=== PATIENT | female | born 1950 | race Caucasian/White ===

== ENCOUNTER 2019-10-06 13:36 | Inpatient (IN) ==
[2019-10-06] MEDS ORDERED: SODIUM CHLORIDE 0.9% 500 ML IV STA (13:58)
[2019-10-06] MEDS ORDERED: ACETAMINOPHEN 325 MG TABLET PO PRN (17:23)
[2019-10-06] MEDS ORDERED: ONDANSETRON 4 MG/2 ML VIAL IV PRN (17:23)
[2019-10-06] MEDS ORDERED: tiZANidine 4 MG TABLET PO PRN (17:26)
[2019-10-06] MEDS: SODIUM CHLORIDE 0.9% 1,000 ML IV SCH (21:00)
[2019-10-06] MEDS: ENOXAPARIN 40 MG/0.4 ML SYRINGE SUBCUT SCH (21:33)
[2019-10-06] MEDS: POTASSIUM CHLORIDE 20 MEQ TABLET PO SCH (21:33)
[2019-10-06] MEDS: MORPHINE 4 MG/1 ML VIAL IV PRN (21:35)
[2019-10-07] MEDS: MORPHINE 4 MG/1 ML VIAL IV PRN ×3 (04:04→14:42)
[2019-10-07 04:40] LABS: Basophils % 0.4 % (0.0-0.8); Eosinophils # 0.3 10*3/uL (0.0-0.87); Hematocrit 28.5 VOL% (35.7-47.0); Immature Granulocytes % 0.5 %; Immature Granulocytes Absolute 0.05 #; Lymphocytes # 1.6 10*3/uL (1.4-4.0); Lymphocytes % 16.7 % (21.3-54.2); Mean Corpuscular HGB Conc 31.6 GM/DL (32-36); Mean Corpuscular Volume 94.7 FL (87-102); Mean Platelet Volume 10.8 FL (9.6-12.0); Neutrophils % 71.4 % (38.7-73.9); Platelet Count 239 T/CUMM (130-400); Red Blood Count 3.01 MC/CUMM (3.8-5.5); Red Cell Distribution Width 15.9 % (9.3-17.3); White Blood Count 9.5 T/CUMM (4-12)
[2019-10-07] MEDS: SODIUM CHLORIDE 0.9% 1,000 ML IV SCH ×4 (04:58→23:36)
[2019-10-07 05:03] LABS: Albumin 2.5 G/DL (3.4-5.0); Bilirubin,Total 1.1 MG/DL (0.2-1.0); Calcium 8.1 MG/DL (8.5-10.1); Thyroid Stimulating Hormone 1.38 uIU/ml (0.358-3.74); Total Protein 5.8 G/DL (6.4-8.3)
[2019-10-07] MEDS: FUROSEMIDE 80 MG TABLET PO SCH (09:09)
[2019-10-07] MEDS: CITALOPRAM 20 MG TABLET PO SCH (09:09)
[2019-10-07] MEDS: MONTELUKAST 10 MG TABLET PO SCH (09:09)
[2019-10-07] MEDS: ATORVASTATIN 20 MG TABLET PO SCH (09:09)
[2019-10-07] MEDS: POTASSIUM CHLORIDE 20 MEQ TABLET PO SCH ×2 (09:09→21:19)
[2019-10-07] MEDS: IRON (CARBONYL)/VIT C/B12/FA TABLET PO SCH (09:10)
[2019-10-07] MEDS: PANTOPRAZOLE 40 MG TABLET PO SCH (09:10)
[2019-10-07] MEDS ORDERED: POTASSIUM CHLORIDE 20 MEQ TABLET PO ONE (12:09)
[2019-10-07 15:10] LABS: Apearance,Urine Slightly Hazy (Clear); Bilirubin,Urine Negative (Negative); Blood, Urine Negative (Negative); Glucose,Urine (UA) Negative (Negative); Ketones,Urine 20 mg/dL (Negative); Nitrite,Urine Negative (Negative); Protein,Urine Negative; RBC,Urine 3 /HPF (0-4); Squamous Epithelial Cell,Urine Occasional /HPF (0-10); Urine Color Yellow (Yellow); Urine Specific Gravity 1.011 (1.001-1.035); Urine Urobilinogen < 2.0 EU/DL (0.2-1.0); WBC,Urine 4 /HPF (0-6)
[2019-10-07] MEDS: oxyCODONE IR 5 MG TABLET PO PRN (18:47)
[2019-10-07] MEDS: ENOXAPARIN 40 MG/0.4 ML SYRINGE SUBCUT SCH (21:19)
[2019-10-08] MEDS: SODIUM CHLORIDE 0.9% 1,000 ML IV SCH ×3 (07:03→09:55)
[2019-10-08 07:21] LABS: Basophils % 0.3 % (0.0-0.8); Eosinophils # 0.2 10*3/uL (0.0-0.87); Eosinophils % 2.1 % (0.00-10.9); Hematocrit 28.4 VOL% (35.7-47.0); Hemoglobin 8.7 GM/DL (12.0-16.0); Immature Granulocytes % 0.3 %; Immature Granulocytes Absolute 0.03 #; Lymphocytes # 1.7 10*3/uL (1.4-4.0); Lymphocytes % 19.9 % (21.3-54.2); Mean Corpuscular HGB Conc 30.6 GM/DL (32-36); Mean Corpuscular Volume 96.3 FL (87-102); Mean Platelet Volume 10.6 FL (9.6-12.0); Monocytes % 8.6 % (1.7-12.7); Neutrophils % 68.8 % (38.7-73.9); Platelet Count 238 T/CUMM (130-400); Red Blood Count 2.95 MC/CUMM (3.8-5.5); Red Cell Distribution Width 15.9 % (9.3-17.3); White Blood Count 8.7 T/CUMM (4-12)
[2019-10-08 07:52] LABS: Calcium 8.3 MG/DL (8.5-10.1); Osmolality,Calculated 279.1 MOS/KG (273-304)
[2019-10-08 08:06] LABS: Risk Ratio 2.7; VLDL CHOLESTEROL 13.8 MG/DL
[2019-10-08] MEDS: POTASSIUM CHLORIDE 20 MEQ TABLET PO SCH ×2 (08:20→22:08)
[2019-10-08] MEDS: CITALOPRAM 20 MG TABLET PO SCH (08:20)
[2019-10-08] MEDS: IRON (CARBONYL)/VIT C/B12/FA TABLET PO SCH (08:20)
[2019-10-08] MEDS: ATORVASTATIN 20 MG TABLET PO SCH (08:21)
[2019-10-08] MEDS: oxyCODONE IR 5 MG TABLET PO PRN ×3 (08:21→22:14)
[2019-10-08] MEDS: MONTELUKAST 10 MG TABLET PO SCH (08:21)
[2019-10-08] MEDS: FUROSEMIDE 80 MG TABLET PO SCH (08:21)
[2019-10-08] MEDS: PANTOPRAZOLE 40 MG TABLET PO SCH (08:21)
[2019-10-08 12:19] LABS: % Iron Saturation 7.1 % (18-50)
[2019-10-08] MEDS: ENOXAPARIN 40 MG/0.4 ML SYRINGE SUBCUT SCH (22:08)
[2019-10-09] MEDS: IRON (CARBONYL)/VIT C/B12/FA TABLET PO SCH (09:42)
[2019-10-09] MEDS: oxyCODONE IR 5 MG TABLET PO PRN ×3 (09:42→22:06)
[2019-10-09] MEDS: ATORVASTATIN 20 MG TABLET PO SCH (09:42)
[2019-10-09] MEDS: CITALOPRAM 20 MG TABLET PO SCH (09:42)
[2019-10-09] MEDS: MONTELUKAST 10 MG TABLET PO SCH (09:42)
[2019-10-09] MEDS: POTASSIUM CHLORIDE 20 MEQ TABLET PO SCH ×2 (09:42→20:12)
[2019-10-09] MEDS: PANTOPRAZOLE 40 MG TABLET PO SCH (09:43)
[2019-10-09] MEDS: SODIUM CHLORIDE 0.9% 1,000 ML IV SCH ×2 (09:46→18:47)
[2019-10-09] MEDS: FUROSEMIDE 80 MG TABLET PO SCH (09:46)
[2019-10-09] MEDS: ENOXAPARIN 40 MG/0.4 ML SYRINGE SUBCUT SCH (20:12)
[2019-10-10] MEDS: SODIUM CHLORIDE 0.9% 1,000 ML IV SCH ×3 (05:42→16:43)
[2019-10-10] MEDS: oxyCODONE IR 5 MG TABLET PO PRN ×3 (07:50→21:56)
[2019-10-10] MEDS: IRON (CARBONYL)/VIT C/B12/FA TABLET PO SCH (09:26)
[2019-10-10] MEDS: POTASSIUM CHLORIDE 20 MEQ TABLET PO SCH ×2 (09:26→21:56)
[2019-10-10] MEDS: CITALOPRAM 20 MG TABLET PO SCH (09:26)
[2019-10-10] MEDS: PANTOPRAZOLE 40 MG TABLET PO SCH (09:26)
[2019-10-10] MEDS: MONTELUKAST 10 MG TABLET PO SCH (09:26)
[2019-10-10] MEDS: FUROSEMIDE 80 MG TABLET PO SCH (09:26)
[2019-10-10] MEDS: ATORVASTATIN 20 MG TABLET PO SCH (09:29)
[2019-10-10] MEDS: ENOXAPARIN 40 MG/0.4 ML SYRINGE SUBCUT SCH (21:57)
[2019-10-11] MEDS: SODIUM CHLORIDE 0.9% 1,000 ML IV SCH ×2 (01:30→15:05)
[2019-10-11] MEDS: oxyCODONE IR 5 MG TABLET PO PRN ×2 (06:20→17:36)
[2019-10-11] MEDS: FUROSEMIDE 80 MG TABLET PO SCH (09:57)
[2019-10-11] MEDS: CITALOPRAM 20 MG TABLET PO SCH (09:57)
[2019-10-11] MEDS: MONTELUKAST 10 MG TABLET PO SCH (09:57)
[2019-10-11] MEDS: PANTOPRAZOLE 40 MG TABLET PO SCH (09:57)
[2019-10-11] MEDS: ATORVASTATIN 20 MG TABLET PO SCH (09:57)
[2019-10-11] MEDS: POTASSIUM CHLORIDE 20 MEQ TABLET PO SCH ×2 (09:57→21:34)
[2019-10-11] MEDS: IRON (CARBONYL)/VIT C/B12/FA TABLET PO SCH (09:58)
[2019-10-11] MEDS: MORPHINE 4 MG/1 ML VIAL IV PRN ×2 (10:18→21:56)
[2019-10-11] MEDS: ENOXAPARIN 40 MG/0.4 ML SYRINGE SUBCUT SCH (21:34)
[2019-10-12 05:18] LABS: Basophils % 0.4 % (0.0-0.8); Eosinophils # 0.1 10*3/uL (0.0-0.87); Eosinophils % 1.4 % (0.00-10.9); Hematocrit 31.6 VOL% (35.7-47.0); Hemoglobin 9.5 GM/DL (12.0-16.0); Immature Granulocytes % 0.7 %; Immature Granulocytes Absolute 0.06 #; Lymphocytes # 1.8 10*3/uL (1.4-4.0); Lymphocytes % 20.9 % (21.3-54.2); Mean Corpuscular HGB Conc 30.1 GM/DL (32-36); Mean Platelet Volume 9.9 FL (9.6-12.0); Monocytes % 10.3 % (1.7-12.7); Neutrophils % 66.3 % (38.7-73.9); Platelet Count 289 T/CUMM (130-400); Red Blood Count 3.29 MC/CUMM (3.8-5.5); Red Cell Distribution Width 15.3 % (9.3-17.3); White Blood Count 8.4 T/CUMM (4-12)
[2019-10-12 05:56] LABS: Calcium 8.7 MG/DL (8.5-10.1); Osmolality,Calculated 278.7 MOS/KG (273-304)
[2019-10-12] MEDS ORDERED: TISSUE ADHESIVE 1 EACH APPLICATOR TOP ONE (10:58)
[2019-10-12] MEDS ORDERED: ROPIVACAINE 0.5% 30 ML VIAL ONE (10:58)
[2019-10-12] MEDS ORDERED: LACTATED RINGERS 1,000 ML IV SCH (12:00)
[2019-10-12] MEDS ORDERED: LIDOCAINE 2% 5 ML VIAL ONE (12:44)
[2019-10-12] MEDS ORDERED: GLYCOPYRROLATE 0.4 MG/2 ML VIAL ONE (12:44)
[2019-10-12] MEDS ORDERED: propofoL 200 MG/20 ML VIAL IV ONE (12:44)
[2019-10-12] MEDS ORDERED: ONDANSETRON 4 MG/2 ML VIAL IV PRN (12:45)
[2019-10-12] MEDS ORDERED: diphenhydrAMINE 50 MG/1 ML VIAL IV PRN (12:45)
[2019-10-12] MEDS ORDERED: MEPERIDINE 25 MG/1 ML VIAL IV PRN (12:45)
[2019-10-12] MEDS ORDERED: PROMETHAZINE INJ 25 MG in SODIUM CHLORIDE 0.9% 50 ML IV PRN (12:45)
[2019-10-12] MEDS ORDERED: MEPERIDINE 25 MG/1 ML VIAL ONE (12:51)
[2019-10-12] MEDS ORDERED: ONDANSETRON 4 MG/2 ML VIAL ONE (12:51)
[2019-10-12] MEDS: oxyCODONE IR 5 MG TABLET PO PRN ×2 (14:19→21:15)
[2019-10-12] MEDS: FUROSEMIDE 80 MG TABLET PO SCH (14:20)
[2019-10-12] MEDS: CITALOPRAM 20 MG TABLET PO SCH (14:25)
[2019-10-12] MEDS: MONTELUKAST 10 MG TABLET PO SCH (14:25)
[2019-10-12] MEDS: POTASSIUM CHLORIDE 20 MEQ TABLET PO SCH ×2 (14:25→20:57)
[2019-10-12] MEDS: guaiFENesin/DM ER 600-30 MG TABLET PO PRN (14:25)
[2019-10-12] MEDS: IRON (CARBONYL)/VIT C/B12/FA TABLET PO SCH (14:25)
[2019-10-12] MEDS: ATORVASTATIN 20 MG TABLET PO SCH (14:26)
[2019-10-12] MEDS: PANTOPRAZOLE 40 MG TABLET PO SCH (14:26)
[2019-10-12] MEDS: CALCIUM (CARBONATE) 600 MG TABLET PO SCH ×2 (15:05→20:57)
[2019-10-12] MEDS: calcitrioL 0.25 MCG CAPSULE PO SCH (15:05)
[2019-10-12] MEDS: MORPHINE 4 MG/1 ML VIAL IV PRN (17:50)
[2019-10-12] MEDS: SODIUM CHLORIDE 0.9% 1,000 ML IV SCH (19:28)
[2019-10-12] MEDS: ENOXAPARIN 40 MG/0.4 ML SYRINGE SUBCUT SCH (20:57)
[2019-10-13] MEDS: SODIUM CHLORIDE 0.9% 1,000 ML IV SCH ×4 (00:41→23:07)
[2019-10-13] MEDS: oxyCODONE IR 5 MG TABLET PO PRN ×2 (05:38→21:07)
[2019-10-13] MEDS: POTASSIUM CHLORIDE 20 MEQ TABLET PO SCH ×2 (09:02→21:07)
[2019-10-13] MEDS: MONTELUKAST 10 MG TABLET PO SCH (09:02)
[2019-10-13] MEDS: calcitrioL 0.25 MCG CAPSULE PO SCH (09:02)
[2019-10-13] MEDS: CALCIUM (CARBONATE) 600 MG TABLET PO SCH ×2 (09:02→21:07)
[2019-10-13] MEDS: ATORVASTATIN 20 MG TABLET PO SCH (09:02)
[2019-10-13] MEDS: guaiFENesin/DM ER 600-30 MG TABLET PO PRN (09:02)
[2019-10-13] MEDS: IRON (CARBONYL)/VIT C/B12/FA TABLET PO SCH (09:02)
[2019-10-13] MEDS: CITALOPRAM 20 MG TABLET PO SCH (09:03)
[2019-10-13] MEDS: PANTOPRAZOLE 40 MG TABLET PO SCH (09:04)
[2019-10-13] MEDS: FUROSEMIDE 80 MG TABLET PO SCH (09:07)
[2019-10-13] MEDS: MORPHINE 4 MG/1 ML VIAL IV PRN (09:42)
[2019-10-13] MEDS: DEXAMETHASONE 4 MG TABLET PO SCH ×3 (14:45→21:07)
[2019-10-13] MEDS: tiZANidine 4 MG TABLET PO SCH ×2 (17:01→21:07)
[2019-10-13] MEDS: ENOXAPARIN 40 MG/0.4 ML SYRINGE SUBCUT SCH (21:07)
[2019-10-14] MEDS: SODIUM CHLORIDE 0.9% 1,000 ML IV SCH ×2 (01:00→13:36)
[2019-10-14] MEDS: oxyCODONE IR 5 MG TABLET PO PRN ×2 (03:36→09:18)
[2019-10-14] MEDS: PANTOPRAZOLE 40 MG TABLET PO SCH (08:28)
[2019-10-14] MEDS: POTASSIUM CHLORIDE 20 MEQ TABLET PO SCH (08:28)
[2019-10-14] MEDS: calcitrioL 0.25 MCG CAPSULE PO SCH (08:28)
[2019-10-14] MEDS: MONTELUKAST 10 MG TABLET PO SCH (08:28)
[2019-10-14] MEDS: DEXAMETHASONE 4 MG TABLET PO SCH ×2 (08:29→13:23)
[2019-10-14] MEDS: IRON (CARBONYL)/VIT C/B12/FA TABLET PO SCH (08:29)
[2019-10-14] MEDS: FUROSEMIDE 80 MG TABLET PO SCH (08:29)
[2019-10-14] MEDS: CITALOPRAM 20 MG TABLET PO SCH (08:29)
[2019-10-14] MEDS: tiZANidine 4 MG TABLET PO SCH (08:29)
[2019-10-14] MEDS: ATORVASTATIN 20 MG TABLET PO SCH (08:29)
[2019-10-14 08:32] VITALS: BP 160/72
[2019-10-14] MEDS: CALCIUM (CARBONATE) 600 MG TABLET PO SCH (09:18)
[2019-10-14] MEDS ORDERED: fentaNYL 25 MCG/HR PATCH TRANSDERM SCH (12:15)
[2019-10-14] MEDS ORDERED: BISACODYL 10 MG SUPP RECTAL ONE (12:43)
== END 2019-10-14 14:38 | DRG 517 ==
LOC: EDUNIT# → N.ED 13:36 → N.EDINP 13:36 → N.2W 17:58 → SUPCPDRO 10-08 15:08 → N.3E 10-09 16:04
PROVIDERS: ADMIT Internal Medicine; ATTEND Internal Medicine

== ENCOUNTER 2019-12-04 13:13 | Inpatient (IN) ==
[2019-12-04] MEDS ORDERED: ALBUTEROL/IPRATROPIUM 3 ML NEB RESP TX STA (14:11)
[2019-12-04] MEDS ORDERED: methylPREDNISolone SOD SUC 125 MG/2 ML VIAL IV STA (14:11)
[2019-12-04] MEDS ORDERED: ONDANSETRON 4 MG/2 ML VIAL IV STA (14:11)
[2019-12-04] MEDS ORDERED: FUROSEMIDE 40 MG/4 ML VIAL IV STA (14:11)
[2019-12-04 14:26] LABS: Basophils % 0.1 % (0.0-0.8); Eosinophils % 0.1 % (0.00-10.9); Hematocrit 24.9 VOL% (35.7-47.0); Hemoglobin 7.3 GM/DL (12.0-16.0); Immature Granulocytes % 2.1 %; Immature Granulocytes Absolute 0.36 #; Lymphocytes # 1.6 10*3/uL (1.4-4.0); Lymphocytes % 9.8 % (21.3-54.2); Mean Corpuscular HGB Conc 29.3 GM/DL (32-36); Mean Corpuscular Volume 85.6 FL (87-102); Mean Platelet Volume 10.5 FL (9.6-12.0); Monocytes % 4.5 % (1.7-12.7); NRBC # 0.03 10*3/uL; Neutrophils % 83.4 % (38.7-73.9); Platelet Count 357 T/CUMM (130-400); Red Blood Count 2.91 MC/CUMM (3.8-5.5); Red Cell Distribution Width 17.2 % (9.3-17.3); White Blood Count 16.8 T/CUMM (4-12)
[2019-12-04 14:32] LABS: Albumin 2.4 G/DL (3.4-5.0); Bilirubin,Total 0.6 MG/DL (0.2-1.0); Calcium 8.4 MG/DL (8.5-10.1); Osmolality,Calculated 270.4 MOS/KG (273-304); Total Protein 5.5 G/DL (6.4-8.3)
[2019-12-04 14:37] LABS: INR 1.1; PT Patient Result 11.4 SECS (9.6-12.2)
[2019-12-04 14:56] LABS: Basophils % 0.1 % (0.0-0.8); Hematocrit 26.2 VOL% (35.7-47.0); Hemoglobin 7.6 GM/DL (12.0-16.0); Immature Granulocytes % 1.5 %; Immature Granulocytes Absolute 0.27 #; Lymphocytes % 11.2 % (21.3-54.2); Mean Platelet Volume 9.9 FL (9.6-12.0); Monocytes % 5.2 % (1.7-12.7); NRBC # 0.03 10*3/uL; Platelet Count 399 T/CUMM (130-400); Red Blood Count 3.01 MC/CUMM (3.8-5.5); Red Cell Distribution Width 17.3 % (9.3-17.3); White Blood Count 17.9 T/CUMM (4-12)
[2019-12-04 15:04] LABS: INR 1.1; PT Patient Result 11.4 SECS (9.6-12.2)
[2019-12-04 15:11] LABS: Albumin 2.6 G/DL (3.4-5.0); Bilirubin,Total 1.1 MG/DL (0.2-1.0); Calcium 8.6 MG/DL (8.5-10.1); Total Protein 5.7 G/DL (6.4-8.3)
[2019-12-04 15:12] LABS: Osmolality,Calculated 271.2 MOS/KG (273-304)
[2019-12-04 15:40] LABS: Apearance,Urine CLEAR (Clear); Bilirubin,Urine Negative (Negative); Blood, Urine Negative (Negative); Glucose,Urine (UA) Negative (Negative); Ketones,Urine Negative (Negative); Nitrite,Urine Negative (Negative); Protein,Urine Negative; Squamous Epithelial Cell,Urine Occasional /HPF (0-10); Urine Color Colorless (Yellow); Urine Specific Gravity 1.013 (1.001-1.035); Urine Urobilinogen < 2.0 EU/DL (0.2-1.0)
[2019-12-04] MEDS ORDERED: GLUCAGON 1 MG VIAL IM PRN (16:06)
[2019-12-04] MEDS ORDERED: DEXTROSE 10% 250 ML BAG IV PRN (16:06)
[2019-12-04] MEDS ORDERED: ACETAMINOPHEN 325 MG TABLET PO PRN (16:12)
[2019-12-04] MEDS ORDERED: ONDANSETRON 4 MG/2 ML VIAL IV PRN (16:12)
[2019-12-04] MEDS ORDERED: tiZANidine 4 MG TABLET PO PRN (16:20)
[2019-12-04] MEDS ORDERED: AZITHROMYCIN INJ 500 MG in SODIUM CHLORIDE 0.9% 250 ML IV SCH (16:30)
[2019-12-04] MEDS ORDERED: SODIUM CHLORIDE 0.9% 1,000 ML IV PRN (17:13)
[2019-12-04 17:26] LABS: % Iron Saturation 3.3 % (18-50); Ferritin 39.7 ng/ml (8-252)
[2019-12-04 17:34] LABS: Folate 11.6 NG/ML (5.4-24.0)
[2019-12-04] MEDS: cefTRIAXone 1,000 MG in SYRINGE 1 EACH IV SCH (17:37)
[2019-12-04] MEDS: INSULIN LISPRO 100 UNIT/ML SUBCUT SCH ×2 (17:51→21:13)
[2019-12-04] MEDS: HEPARIN DRIP 25,000 UNITS/500 ML PREMIX IV SCH (18:11)
[2019-12-04] MEDS: ALBUTEROL/IPRATROPIUM 3 ML NEB RESP TX SCH (19:50)
[2019-12-04] MEDS ORDERED: AZITHROMYCIN 250 MG TABLET PO ONE (20:00)
[2019-12-04 20:23] LABS: Hematocrit 27.5 VOL% (35.7-47.0); Hemoglobin 7.5 GM/DL (12.0-16.0)
[2019-12-04] MEDS: POTASSIUM CHLORIDE 20 MEQ TABLET PO SCH (21:12)
[2019-12-04] MEDS: IRON (CARBONYL)/VIT C/B12/FA TABLET PO SCH (21:12)
[2019-12-04] MEDS: CALCIUM (CARBONATE) 600 MG TABLET PO SCH (21:13)
[2019-12-04] MEDS: DEXAMETHASONE 4 MG TABLET PO SCH (21:13)
[2019-12-05] MEDS: ALBUTEROL/IPRATROPIUM 3 ML NEB RESP TX SCH ×4 (01:35→20:45)
[2019-12-05 03:14] LABS: Hematocrit 24.9 VOL% (35.7-47.0); Hemoglobin 7.3 GM/DL (12.0-16.0)
[2019-12-05 03:44] LABS: Calcium 8.3 MG/DL (8.5-10.1); Osmolality,Calculated 279.5 MOS/KG (273-304); Thyroid Stimulating Hormone 0.142 uIU/ml (0.358-3.74)
[2019-12-05] MEDS: HEPARIN DRIP 25,000 UNITS/500 ML PREMIX IV SCH ×2 (05:23→19:24)
[2019-12-05 05:45] LABS: Basophils % 0.1 % (0.0-0.8); Eosinophils % 0.1 % (0.00-10.9); Hematocrit 25.5 VOL% (35.7-47.0); Hemoglobin 7.3 GM/DL (12.0-16.0); Immature Granulocytes Absolute 0.35 #; Lymphocytes % 11.1 % (21.3-54.2); Mean Corpuscular HGB Conc 28.6 GM/DL (32-36); Mean Platelet Volume 10.4 FL (9.6-12.0); Monocytes % 3.1 % (1.7-12.7); NRBC # 0.04 10*3/uL; Neutrophils % 83.6 % (38.7-73.9); Platelet Count 407 T/CUMM (130-400); Red Blood Count 2.93 MC/CUMM (3.8-5.5); White Blood Count 17.8 T/CUMM (4-12)
[2019-12-05 05:47] LABS: Anisocytosis 1+; Platelet Estimate Adequate
[2019-12-05] MEDS ORDERED: POTASSIUM CHLORIDE 20 MEQ TABLET PO ONE (07:59)
[2019-12-05] MEDS: IRON (CARBONYL)/VIT C/B12/FA TABLET PO SCH ×2 (09:21→21:24)
[2019-12-05] MEDS: CALCIUM (CARBONATE) 600 MG TABLET PO SCH ×2 (09:21→21:24)
[2019-12-05] MEDS: CITALOPRAM 20 MG TABLET PO SCH (09:21)
[2019-12-05] MEDS: POTASSIUM CHLORIDE 20 MEQ TABLET PO SCH ×2 (09:21→21:25)
[2019-12-05] MEDS: DEXAMETHASONE 4 MG TABLET PO SCH ×2 (09:22→21:24)
[2019-12-05] MEDS: ATORVASTATIN 20 MG TABLET PO SCH (09:22)
[2019-12-05] MEDS: AZITHROMYCIN 250 MG TABLET PO SCH (09:22)
[2019-12-05] MEDS: FUROSEMIDE 80 MG TABLET PO SCH (09:22)
[2019-12-05] MEDS: MONTELUKAST 10 MG TABLET PO SCH (09:22)
[2019-12-05] MEDS: BUDESONIDE/FORMOTEROL 160-4.5 INHALER 6 GM INH SCH ×3 (09:23→21:25)
[2019-12-05] MEDS: calcitrioL 0.25 MCG CAPSULE PO SCH (09:28)
[2019-12-05] MEDS: INSULIN LISPRO 100 UNIT/ML SUBCUT SCH ×4 (09:28→21:24)
[2019-12-05] MEDS: PANTOPRAZOLE 40 MG VIAL IV SCH ×2 (14:38→21:25)
[2019-12-05] MEDS: cefTRIAXone 1,000 MG in SYRINGE 1 EACH IV SCH (19:36)
[2019-12-05] MEDS: INSULIN GLARGINE 100 UNIT/ML SUBCUT SCH (21:25)
[2019-12-06] MEDS: ALBUTEROL/IPRATROPIUM 3 ML NEB RESP TX SCH ×4 (00:08→19:52)
[2019-12-06 05:19] LABS: Basophils % 0.1 % (0.0-0.8); Immature Granulocytes % 1.7 %; Immature Granulocytes Absolute 0.28 #; Lymphocytes # 0.8 10*3/uL (1.4-4.0); Lymphocytes % 4.9 % (21.3-54.2); Mean Corpuscular HGB Conc 27.8 GM/DL (32-36); Mean Corpuscular Volume 88.1 FL (87-102); Mean Platelet Volume 9.8 FL (9.6-12.0); NRBC # 0.06 10*3/uL; Neutrophils % 88.3 % (38.7-73.9); Platelet Count 354 T/CUMM (130-400); Red Blood Count 2.61 MC/CUMM (3.8-5.5); White Blood Count 16.5 T/CUMM (4-12)
[2019-12-06 05:28] LABS: Hemoglobin 6.4 GM/DL (12.0-16.0)
[2019-12-06] MEDS ORDERED: SODIUM CHLORIDE 0.9% 1,000 ML IV PRN (05:33)
[2019-12-06 05:34] LABS: Calcium 8.8 MG/DL (8.5-10.1); Osmolality,Calculated 281.1 MOS/KG (273-304)
[2019-12-06 06:29] LABS: Lymphocytes 4 % (20-55); Segmented Neutrophils 93 % (50-85); Total Cells Counted 100
[2019-12-06 06:30] LABS: Anisocytosis 1+; Hypochromasia 1+; Microcytosis 1+; Ovalocytes 1+; Platelet Estimate Adequate; Polychromasia 1+
[2019-12-06] MEDS: MONTELUKAST 10 MG TABLET PO SCH (08:31)
[2019-12-06] MEDS: INSULIN LISPRO 100 UNIT/ML SUBCUT SCH ×4 (08:31→20:26)
[2019-12-06] MEDS: FUROSEMIDE 80 MG TABLET PO SCH (08:32)
[2019-12-06] MEDS: DEXAMETHASONE 4 MG TABLET PO SCH ×2 (08:32→20:29)
[2019-12-06] MEDS: CALCIUM (CARBONATE) 600 MG TABLET PO SCH ×2 (08:32→20:28)
[2019-12-06] MEDS: POTASSIUM CHLORIDE 20 MEQ TABLET PO SCH ×2 (08:32→20:27)
[2019-12-06] MEDS: ATORVASTATIN 20 MG TABLET PO SCH (08:32)
[2019-12-06] MEDS: IRON (CARBONYL)/VIT C/B12/FA TABLET PO SCH ×2 (08:32→20:28)
[2019-12-06] MEDS: CITALOPRAM 20 MG TABLET PO SCH (08:32)
[2019-12-06] MEDS: calcitrioL 0.25 MCG CAPSULE PO SCH (08:32)
[2019-12-06] MEDS: AZITHROMYCIN 250 MG TABLET PO SCH (08:32)
[2019-12-06] MEDS: PANTOPRAZOLE 40 MG VIAL IV SCH ×2 (08:33→20:31)
[2019-12-06] MEDS: HEPARIN DRIP 25,000 UNITS/500 ML PREMIX IV SCH ×2 (09:39→23:14)
[2019-12-06] MEDS: BUDESONIDE/FORMOTEROL 160-4.5 INHALER 6 GM INH SCH ×2 (10:04→20:29)
[2019-12-06] MEDS: fentaNYL 12 MCG/HR PATCH TRANSDERM SCH (12:48)
[2019-12-06 16:01] LABS: Hemoglobin 9.1 GM/DL (12.0-16.0)
[2019-12-06] MEDS: cefTRIAXone 1,000 MG in SYRINGE 1 EACH IV SCH (17:35)
[2019-12-06] MEDS: INSULIN GLARGINE 100 UNIT/ML SUBCUT SCH (20:27)
[2019-12-07] MEDS: ALBUTEROL/IPRATROPIUM 3 ML NEB RESP TX SCH ×4 (00:59→19:53)
[2019-12-07] MEDS: POTASSIUM CHLORIDE 20 MEQ TABLET PO SCH ×2 (08:45→21:14)
[2019-12-07] MEDS: CALCIUM (CARBONATE) 600 MG TABLET PO SCH ×2 (08:45→21:15)
[2019-12-07] MEDS: MONTELUKAST 10 MG TABLET PO SCH (08:45)
[2019-12-07] MEDS: PANTOPRAZOLE 40 MG VIAL IV SCH ×2 (08:46→21:15)
[2019-12-07] MEDS: IRON (CARBONYL)/VIT C/B12/FA TABLET PO SCH ×2 (08:46→21:14)
[2019-12-07] MEDS: FUROSEMIDE 80 MG TABLET PO SCH (08:46)
[2019-12-07] MEDS: ATORVASTATIN 20 MG TABLET PO SCH (08:46)
[2019-12-07] MEDS: CITALOPRAM 20 MG TABLET PO SCH (08:46)
[2019-12-07] MEDS: calcitrioL 0.25 MCG CAPSULE PO SCH (08:46)
[2019-12-07] MEDS: AZITHROMYCIN 250 MG TABLET PO SCH (08:46)
[2019-12-07] MEDS: DEXAMETHASONE 4 MG TABLET PO SCH ×2 (08:46→21:14)
[2019-12-07] MEDS: INSULIN LISPRO 100 UNIT/ML SUBCUT SCH ×4 (08:47→21:15)
[2019-12-07] MEDS: BUDESONIDE/FORMOTEROL 160-4.5 INHALER 6 GM INH SCH ×2 (08:47→21:14)
[2019-12-07] MEDS: HEPARIN DRIP 25,000 UNITS/500 ML PREMIX IV SCH ×3 (10:26→18:26)
[2019-12-07 13:04] LABS: Hematocrit 32.9 VOL% (35.7-47.0); Hemoglobin 10.1 GM/DL (12.0-16.0)
[2019-12-07] MEDS: cefTRIAXone 1,000 MG in SYRINGE 1 EACH IV SCH (17:46)
[2019-12-07] MEDS ORDERED: MAGNESIUM CITRATE 300 ML BOTTLE PO ONE (18:00)
[2019-12-07] MEDS: INSULIN GLARGINE 100 UNIT/ML SUBCUT SCH (21:15)
[2019-12-08] MEDS: ALBUTEROL/IPRATROPIUM 3 ML NEB RESP TX SCH ×4 (00:35→20:16)
[2019-12-08] MEDS: HEPARIN DRIP 25,000 UNITS/500 ML PREMIX IV SCH ×3 (02:33→17:38)
[2019-12-08 06:54] LABS: Basophils % 0.1 % (0.0-0.8); Hematocrit 27.9 VOL% (35.7-47.0); Hemoglobin 8.7 GM/DL (12.0-16.0); Immature Granulocytes % 2.3 %; Lymphocytes # 0.9 10*3/uL (1.4-4.0); Lymphocytes % 5.1 % (21.3-54.2); Mean Corpuscular HGB Conc 31.2 GM/DL (32-36); Mean Corpuscular Volume 85.1 FL (87-102); Mean Platelet Volume 9.7 FL (9.6-12.0); Monocytes % 6.3 % (1.7-12.7); NRBC # 0.02 10*3/uL; Neutrophils % 86.2 % (38.7-73.9); Platelet Count 313 T/CUMM (130-400); Red Blood Count 3.28 MC/CUMM (3.8-5.5); Red Cell Distribution Width 16.5 % (9.3-17.3); White Blood Count 17.4 T/CUMM (4-12)
[2019-12-08 07:25] LABS: Calcium 8.3 MG/DL (8.5-10.1); Osmolality,Calculated 281.2 MOS/KG (273-304)
[2019-12-08] MEDS: ATORVASTATIN 20 MG TABLET PO SCH (09:21)
[2019-12-08] MEDS: MONTELUKAST 10 MG TABLET PO SCH (09:21)
[2019-12-08] MEDS: AZITHROMYCIN 250 MG TABLET PO SCH (09:21)
[2019-12-08] MEDS: calcitrioL 0.25 MCG CAPSULE PO SCH (09:21)
[2019-12-08] MEDS: CALCIUM (CARBONATE) 600 MG TABLET PO SCH ×2 (09:22→20:56)
[2019-12-08] MEDS: FUROSEMIDE 80 MG TABLET PO SCH (09:22)
[2019-12-08] MEDS: CITALOPRAM 20 MG TABLET PO SCH (09:22)
[2019-12-08] MEDS: fentaNYL 12 MCG/HR PATCH TRANSDERM SCH (09:24)
[2019-12-08] MEDS: INSULIN LISPRO 100 UNIT/ML SUBCUT SCH ×4 (09:25→20:56)
[2019-12-08] MEDS: PANTOPRAZOLE 40 MG VIAL IV SCH ×2 (09:25→20:57)
[2019-12-08] MEDS: BUDESONIDE/FORMOTEROL 160-4.5 INHALER 6 GM INH SCH ×2 (09:26→20:57)
[2019-12-08] MEDS: POTASSIUM CHLORIDE 20 MEQ/15 ML UDCUP PO SCH ×2 (09:34→21:03)
[2019-12-08] MEDS: DEXAMETHASONE 4 MG TABLET PO SCH ×2 (09:34→20:56)
[2019-12-08] MEDS: cefTRIAXone 1,000 MG in SYRINGE 1 EACH IV SCH (17:30)
[2019-12-08] MEDS: INSULIN GLARGINE 100 UNIT/ML SUBCUT SCH (20:57)
[2019-12-09] MEDS: ALBUTEROL/IPRATROPIUM 3 ML NEB RESP TX SCH ×4 (01:02→20:32)
[2019-12-09 05:32] LABS: Basophils % 0.1 % (0.0-0.8); Hematocrit 29.1 VOL% (35.7-47.0); Hemoglobin 8.7 GM/DL (12.0-16.0); Immature Granulocytes % 2.7 %; Immature Granulocytes Absolute 0.51 #; Lymphocytes # 0.9 10*3/uL (1.4-4.0); Lymphocytes % 4.7 % (21.3-54.2); Mean Corpuscular HGB Conc 29.9 GM/DL (32-36); Mean Corpuscular Volume 85.1 FL (87-102); Mean Platelet Volume 10.2 FL (9.6-12.0); Monocytes % 4.6 % (1.7-12.7); Neutrophils % 87.9 % (38.7-73.9); Platelet Count 315 T/CUMM (130-400); Red Blood Count 3.42 MC/CUMM (3.8-5.5); Red Cell Distribution Width 16.6 % (9.3-17.3); White Blood Count 19.1 T/CUMM (4-12)
[2019-12-09 05:51] LABS: Calcium 8.8 MG/DL (8.5-10.1); Osmolality,Calculated 275.4 MOS/KG (273-304)
[2019-12-09 05:54] LABS: Anisocytosis 1+; Hypochromasia 1+; Lymphocytes 6 % (20-55); Ovalocytes Few; Segmented Neutrophils 91 % (50-85); Tear Drop Cells Few; Total Cells Counted 100
[2019-12-09 05:55] LABS: Platelet Estimate Normal
[2019-12-09] MEDS: INSULIN LISPRO 100 UNIT/ML SUBCUT SCH ×4 (09:12→20:57)
[2019-12-09] MEDS: FUROSEMIDE 80 MG TABLET PO SCH (09:12)
[2019-12-09] MEDS: MONTELUKAST 10 MG TABLET PO SCH (09:12)
[2019-12-09] MEDS: CALCIUM (CARBONATE) 600 MG TABLET PO SCH ×2 (09:12→20:54)
[2019-12-09] MEDS: CITALOPRAM 20 MG TABLET PO SCH (09:12)
[2019-12-09] MEDS: ATORVASTATIN 20 MG TABLET PO SCH (09:12)
[2019-12-09] MEDS: AZITHROMYCIN 250 MG TABLET PO SCH (09:12)
[2019-12-09] MEDS: POTASSIUM CHLORIDE 20 MEQ/15 ML UDCUP PO SCH ×2 (09:12→20:54)
[2019-12-09] MEDS: PANTOPRAZOLE 40 MG VIAL IV SCH ×2 (09:13→20:54)
[2019-12-09] MEDS: BUDESONIDE/FORMOTEROL 160-4.5 INHALER 6 GM INH SCH ×2 (09:15→12:30)
[2019-12-09] MEDS: DEXAMETHASONE 4 MG TABLET PO SCH ×2 (09:19→20:54)
[2019-12-09] MEDS: calcitrioL 0.25 MCG CAPSULE PO SCH (09:19)
[2019-12-09] MEDS: HEPARIN DRIP 25,000 UNITS/500 ML PREMIX IV SCH ×2 (09:23→18:04)
[2019-12-09] MEDS: fentaNYL 12 MCG/HR PATCH TRANSDERM SCH (09:23)
[2019-12-09] MEDS: cefTRIAXone 1,000 MG in SYRINGE 1 EACH IV SCH (17:57)
[2019-12-09] MEDS: METOCLOPRAMIDE 10 MG/2 ML VIAL IV SCH (17:57)
[2019-12-09] MEDS: INSULIN GLARGINE 100 UNIT/ML SUBCUT SCH (20:57)
[2019-12-10] MEDS: METOCLOPRAMIDE 10 MG/2 ML VIAL IV SCH ×2 (01:39→06:09)
[2019-12-10] MEDS: ALBUTEROL/IPRATROPIUM 3 ML NEB RESP TX SCH ×4 (02:04→20:12)
[2019-12-10 05:31] LABS: Basophils % 0.1 % (0.0-0.8); Hemoglobin 8.5 GM/DL (12.0-16.0); Immature Granulocytes % 3.3 %; Lymphocytes # 0.9 10*3/uL (1.4-4.0); Lymphocytes % 4.8 % (21.3-54.2); Mean Corpuscular HGB Conc 29.3 GM/DL (32-36); Mean Corpuscular Volume 86.6 FL (87-102); Mean Platelet Volume 9.8 FL (9.6-12.0); Monocytes % 4.3 % (1.7-12.7); Neutrophils % 87.5 % (38.7-73.9); Platelet Count 298 T/CUMM (130-400); Red Blood Count 3.35 MC/CUMM (3.8-5.5); Red Cell Distribution Width 16.4 % (9.3-17.3); White Blood Count 18.1 T/CUMM (4-12)
[2019-12-10 05:57] LABS: Calcium 8.6 MG/DL (8.5-10.1); Osmolality,Calculated 274.4 MOS/KG (273-304)
[2019-12-10 06:15] LABS: Anisocytosis 1+; Hypochromasia 1+; Lymphocytes 3 % (20-55); Microcytosis 1+; Segmented Neutrophils 93 % (50-85); Total Cells Counted 100
[2019-12-10 06:16] LABS: Hypersegmented Neutrophil SLIGHT
[2019-12-10] MEDS: INSULIN LISPRO 100 UNIT/ML SUBCUT SCH ×4 (08:23→22:15)
[2019-12-10] MEDS: POTASSIUM CHLORIDE 20 MEQ/15 ML UDCUP PO SCH ×2 (08:24→22:16)
[2019-12-10] MEDS: calcitrioL 0.25 MCG CAPSULE PO SCH (08:24)
[2019-12-10] MEDS: CITALOPRAM 20 MG TABLET PO SCH (08:25)
[2019-12-10] MEDS: CALCIUM (CARBONATE) 600 MG TABLET PO SCH ×2 (08:25→22:17)
[2019-12-10] MEDS: MONTELUKAST 10 MG TABLET PO SCH (08:25)
[2019-12-10] MEDS: ATORVASTATIN 20 MG TABLET PO SCH (08:25)
[2019-12-10] MEDS: FUROSEMIDE 80 MG TABLET PO SCH (08:25)
[2019-12-10] MEDS: AZITHROMYCIN 250 MG TABLET PO SCH (08:25)
[2019-12-10] MEDS: PANTOPRAZOLE 40 MG VIAL IV SCH ×2 (08:27→22:15)
[2019-12-10] MEDS: DEXAMETHASONE 4 MG TABLET PO SCH ×2 (08:32→22:17)
[2019-12-10] MEDS: IRON (CARBONYL)/VIT C/B12/FA TABLET PO SCH ×2 (08:33→22:17)
[2019-12-10] MEDS: HEPARIN DRIP 25,000 UNITS/500 ML PREMIX IV SCH (08:35)
[2019-12-10] MEDS: APIXABAN 5 MG TABLET PO SCH ×2 (09:36→22:17)
[2019-12-10] MEDS: BUDESONIDE/FORMOTEROL 160-4.5 INHALER 6 GM INH SCH ×2 (09:36→22:30)
[2019-12-10] MEDS: METOCLOPRAMIDE 10 MG/10 ML UDCUP PO SCH ×4 (12:13→22:16)
[2019-12-10] MEDS: cefTRIAXone 1,000 MG in SYRINGE 1 EACH IV SCH (17:16)
[2019-12-10] MEDS: INSULIN GLARGINE 100 UNIT/ML SUBCUT SCH (22:16)
[2019-12-11] MEDS: ALBUTEROL/IPRATROPIUM 3 ML NEB RESP TX SCH ×2 (00:39→09:09)
[2019-12-11 05:28] LABS: Calcium 8.6 MG/DL (8.5-10.1); Osmolality,Calculated 274.4 MOS/KG (273-304)
[2019-12-11] MEDS: METOCLOPRAMIDE 10 MG/10 ML UDCUP PO SCH ×2 (08:00→11:47)
[2019-12-11] MEDS: INSULIN LISPRO 100 UNIT/ML SUBCUT SCH ×2 (08:01→11:47)
[2019-12-11 08:10] LABS: Basophils % 0.1 % (0.0-0.8); Hematocrit 31.2 VOL% (35.7-47.0); Hemoglobin 9.1 GM/DL (12.0-16.0); Immature Granulocytes % 3.7 %; Lymphocytes % 4.6 % (21.3-54.2); Mean Corpuscular HGB Conc 29.2 GM/DL (32-36); Mean Corpuscular Volume 87.6 FL (87-102); Monocytes % 4.1 % (1.7-12.7); Neutrophils % 87.5 % (38.7-73.9); Platelet Count 316 T/CUMM (130-400); Red Blood Count 3.56 MC/CUMM (3.8-5.5); Red Cell Distribution Width 16.5 % (9.3-17.3); White Blood Count 21.8 T/CUMM (4-12)
[2019-12-11 08:51] LABS: Band Neutrophils 1 % (0-10); Lymphocytes 7 % (20-55); Platelet Estimate Normal; Segmented Neutrophils 88 % (50-85); Total Cells Counted 100
[2019-12-11 08:52] LABS: Anisocytosis 1+
[2019-12-11] MEDS: ATORVASTATIN 20 MG TABLET PO SCH (09:18)
[2019-12-11] MEDS: FUROSEMIDE 80 MG TABLET PO SCH (09:18)
[2019-12-11] MEDS: AZITHROMYCIN 250 MG TABLET PO SCH (09:18)
[2019-12-11] MEDS: POTASSIUM CHLORIDE 20 MEQ/15 ML UDCUP PO SCH (09:18)
[2019-12-11] MEDS: IRON (CARBONYL)/VIT C/B12/FA TABLET PO SCH (09:18)
[2019-12-11] MEDS: MONTELUKAST 10 MG TABLET PO SCH (09:18)
[2019-12-11] MEDS: CITALOPRAM 20 MG TABLET PO SCH (09:18)
[2019-12-11] MEDS: PANTOPRAZOLE 40 MG VIAL IV SCH (09:18)
[2019-12-11] MEDS: CALCIUM (CARBONATE) 600 MG TABLET PO SCH (09:18)
[2019-12-11] MEDS: DEXAMETHASONE 4 MG TABLET PO SCH (09:18)
[2019-12-11] MEDS: APIXABAN 5 MG TABLET PO SCH (09:18)
[2019-12-11] MEDS: BUDESONIDE/FORMOTEROL 160-4.5 INHALER 6 GM INH SCH (09:19)
[2019-12-11] MEDS: calcitrioL 0.25 MCG CAPSULE PO SCH (09:21)
[2019-12-11] MEDS ORDERED: APIXABAN 5 MG TABLET PO ONE (11:08)
[2019-12-11 12:16] VITALS: BP 112/71
[2019-12-11] MEDS ORDERED: APIXABAN 5 MG TABLET PO SCH ×2 (21:00)
== END 2019-12-11 13:52 | disposition home health service (06) | DRG 175 ==
LOC: EDUNIT# → N.ED 13:13 → SUATTDRO 16:05 → N.EDINP 16:05 → N.TELEN 17:10
PROVIDERS: ADMIT Internal Medicine; ATTEND Internal Medicine Geriatric Medicine

== ENCOUNTER 2019-12-24 16:30 | Inpatient (IN) ==
[2019-12-24] MEDS ORDERED: ORPHENADRINE 60 MG/2 ML VIAL IV STA (17:03)
[2019-12-24 17:59] LABS: Basophils % 0.1 % (0.0-0.8); Hematocrit 24.4 VOL% (35.7-47.0); Hemoglobin 7.2 GM/DL (12.0-16.0); Immature Granulocytes % 2.1 %; Immature Granulocytes Absolute 0.35 #; Lymphocytes # 0.8 10*3/uL (1.4-4.0); Lymphocytes % 4.5 % (21.3-54.2); Mean Corpuscular HGB Conc 29.5 GM/DL (32-36); Mean Corpuscular Volume 87.8 FL (87-102); Mean Platelet Volume 9.5 FL (9.6-12.0); Monocytes % 3.5 % (1.7-12.7); NRBC # 0.06 10*3/uL; Neutrophils % 89.8 % (38.7-73.9); Platelet Count 222 T/CUMM (130-400); Red Blood Count 2.78 MC/CUMM (3.8-5.5); Red Cell Distribution Width 18.9 % (9.3-17.3); White Blood Count 16.9 T/CUMM (4-12)
[2019-12-24 18:17] LABS: Alanine Aminotransferase 102 U/L (13-56); Albumin 2.1 G/DL (3.4-5.0); Alkaline Phosphatase 75 U/L (45-117); Aspartate Amino Transferase 19 U/L (0-37); Blood Urea Nitrogen 28 MG/DL (7-18); Calcium 7.9 MG/DL (8.5-10.1); Estimated Glom Filtration Rate 109 ML/MIN; Ferritin 25.4 ng/ml (8-252); Glucose 461 MG/DL (74-106); Osmolality,Calculated 289.5 MOS/KG (273-304); Total Protein 5.1 G/DL (6.4-8.3); Troponin I 0.026 NG/ML (0.00-0.045)
[2019-12-24 18:19] LABS: Apearance,Urine CLEAR (Clear); Bilirubin,Urine Negative (Negative); Blood, Urine Negative (Negative); Glucose,Urine (UA) >=500 mg/dL (Negative); Hyaline Casts,Urine 4 /LPF (0-3); Ketones,Urine Negative (Negative); Mucus,Urine Occasional /LPF (Occasional); Nitrite,Urine Negative (Negative); Protein,Urine Negative; RBC,Urine 7 /HPF (0-4); Squamous Epithelial Cell,Urine Occasional /HPF (0-10); Transitional Epi Cells,Urine Occasional /HPF (<1); Urine Color Yellow (Yellow); Urine Specific Gravity 1.018 (1.001-1.035); Urine Urobilinogen < 2.0 EU/DL (0.2-1.0); WBC,Urine 20 /HPF (0-6)
[2019-12-24 18:24] LABS: Lymphocytes 6 % (20-55); Platelet Estimate Normal; Segmented Neutrophils 94 % (50-85); Total Cells Counted 100
[2019-12-24 18:25] LABS: Hypochromasia Slight
[2019-12-24 18:29] LABS: PT Patient Result 10.8 SECS (9.8-11.9)
[2019-12-24 18:30] LABS: Partial Thromboplastin Time > 211.8 SECS (23.9-33.8)
[2019-12-24] MEDS ORDERED: DEXTROSE 10% 250 ML BAG IV PRN (18:54)
[2019-12-24] MEDS ORDERED: DEXTROSE 50% 25 GM/50 ML VIAL IV PRN (18:54)
[2019-12-24] MEDS ORDERED: GLUCAGON 1 MG VIAL IM PRN ×2 (18:54)
[2019-12-24] MEDS ORDERED: tiZANidine 4 MG TABLET PO PRN (18:56)
[2019-12-24] MEDS ORDERED: BUDESONIDE/FORMOTEROL 160-4.5 INHALER 6 GM INH PRN (18:56)
[2019-12-24] MEDS ORDERED: PANTOPRAZOLE 40 MG TABLET PO SCH (19:00)
[2019-12-24] MEDS ORDERED: SODIUM CHLORIDE 0.9% 1,000 ML IV PRN (19:00)
[2019-12-24] MEDS ORDERED: cefTRIAXone 1,000 MG in SYRINGE 1 EACH IV SCH (21:00)
[2019-12-24] MEDS: PANTOPRAZOLE 40 MG VIAL IV SCH (22:30)
[2019-12-24] MEDS: APIXABAN 5 MG TABLET PO SCH (22:30)
[2019-12-24] MEDS: CALCIUM (CARBONATE) 600 MG TABLET PO SCH (22:30)
[2019-12-24] MEDS: INSULIN LISPRO 100 UNIT/ML SUBCUT SCH (22:56)
[2019-12-25] MEDS ORDERED: SODIUM CHLORIDE 0.9% 1,000 ML IV PRN ×2 (00:54→00:56)
[2019-12-25 06:43] LABS: Basophils % 0.1 % (0.0-0.8); Hematocrit 27.4 VOL% (35.7-47.0); Hemoglobin 8.1 GM/DL (12.0-16.0); Immature Granulocytes % 1.7 %; Immature Granulocytes Absolute 0.27 #; Lymphocytes # 1.4 10*3/uL (1.4-4.0); Lymphocytes % 9.1 % (21.3-54.2); Mean Corpuscular HGB Conc 29.6 GM/DL (32-36); Mean Platelet Volume 9.6 FL (9.6-12.0); Monocytes % 6.1 % (1.7-12.7); NRBC # 0.03 10*3/uL; Platelet Count 221 T/CUMM (130-400); Red Blood Count 3.08 MC/CUMM (3.8-5.5); Red Cell Distribution Width 18.4 % (9.3-17.3); White Blood Count 15.6 T/CUMM (4-12)
[2019-12-25 07:03] LABS: Calcium 8.1 MG/DL (8.5-10.1); Osmolality,Calculated 278.1 MOS/KG (273-304)
[2019-12-25] MEDS: CITALOPRAM 20 MG TABLET PO SCH (09:21)
[2019-12-25] MEDS: MONTELUKAST 10 MG TABLET PO SCH (09:21)
[2019-12-25] MEDS: PANTOPRAZOLE 40 MG VIAL IV SCH ×2 (09:21→20:29)
[2019-12-25] MEDS: APIXABAN 5 MG TABLET PO SCH ×2 (09:21→20:28)
[2019-12-25] MEDS: ATORVASTATIN 20 MG TABLET PO SCH (09:21)
[2019-12-25] MEDS: CALCIUM (CARBONATE) 600 MG TABLET PO SCH ×2 (09:21→20:28)
[2019-12-25] MEDS: PIPERACILLIN/TAZOBACTAM 3,375 MG in SODIUM CHLORIDE 0.9% 100 ML IV SCH ×3 (09:22→23:38)
[2019-12-25] MEDS: INSULIN LISPRO 100 UNIT/ML SUBCUT SCH ×4 (09:32→20:29)
[2019-12-25] MEDS: METOCLOPRAMIDE 10 MG/10 ML UDCUP PO SCH ×2 (17:04→20:29)
[2019-12-26 05:43] LABS: Basophils % 0.2 % (0.0-0.8); Eosinophils % 0.2 % (0.00-10.9); Hematocrit 28.2 VOL% (35.7-47.0); Hemoglobin 8.3 GM/DL (12.0-16.0); Immature Granulocytes % 1.6 %; Immature Granulocytes Absolute 0.21 #; Lymphocytes # 1.4 10*3/uL (1.4-4.0); Lymphocytes % 10.7 % (21.3-54.2); Mean Corpuscular HGB Conc 29.4 GM/DL (32-36); Mean Platelet Volume 9.6 FL (9.6-12.0); Monocytes % 7.4 % (1.7-12.7); NRBC # 0.03 10*3/uL; Neutrophils % 79.9 % (38.7-73.9); Platelet Count 198 T/CUMM (130-400); Red Blood Count 3.17 MC/CUMM (3.8-5.5); White Blood Count 13.1 T/CUMM (4-12)
[2019-12-26 06:14] LABS: Osmolality,Calculated 276.1 MOS/KG (273-304)
[2019-12-26] MEDS: INSULIN LISPRO 100 UNIT/ML SUBCUT SCH ×5 (08:41→21:33)
[2019-12-26] MEDS: MONTELUKAST 10 MG TABLET PO SCH (09:04)
[2019-12-26] MEDS: CALCIUM (CARBONATE) 600 MG TABLET PO SCH ×2 (09:04→21:34)
[2019-12-26] MEDS: APIXABAN 5 MG TABLET PO SCH ×2 (09:04→21:34)
[2019-12-26] MEDS: ATORVASTATIN 20 MG TABLET PO SCH (09:04)
[2019-12-26] MEDS: METOCLOPRAMIDE 10 MG/10 ML UDCUP PO SCH ×4 (09:04→21:35)
[2019-12-26] MEDS: PANTOPRAZOLE 40 MG VIAL IV SCH (09:04)
[2019-12-26] MEDS: CITALOPRAM 20 MG TABLET PO SCH (09:04)
[2019-12-26] MEDS: PIPERACILLIN/TAZOBACTAM 3,375 MG in SODIUM CHLORIDE 0.9% 100 ML IV SCH (09:14)
[2019-12-26] MEDS: AMOXICILLIN/CLAV 875 MG TABLET PO SCH ×2 (12:55→21:34)
[2019-12-26] MEDS: PANTOPRAZOLE 40 MG TABLET PO SCH (21:34)
[2019-12-27 06:51] LABS: Basophils % 0.1 % (0.0-0.8); Eosinophils % 0.3 % (0.00-10.9); Hematocrit 27.5 VOL% (35.7-47.0); Hemoglobin 8.2 GM/DL (12.0-16.0); Immature Granulocytes % 1.1 %; Immature Granulocytes Absolute 0.11 #; Lymphocytes # 1.2 10*3/uL (1.4-4.0); Lymphocytes % 12.1 % (21.3-54.2); Mean Corpuscular HGB Conc 29.8 GM/DL (32-36); Mean Corpuscular Volume 88.7 FL (87-102); Mean Platelet Volume 9.4 FL (9.6-12.0); Monocytes % 6.4 % (1.7-12.7); NRBC # 0.02 10*3/uL; Platelet Count 176 T/CUMM (130-400); Red Cell Distribution Width 18.7 % (9.3-17.3); White Blood Count 10.1 T/CUMM (4-12)
[2019-12-27 07:18] LABS: Calcium 8.2 MG/DL (8.5-10.1); Osmolality,Calculated 273.1 MOS/KG (273-304)
[2019-12-27] MEDS: INSULIN LISPRO 100 UNIT/ML SUBCUT SCH ×4 (07:34→20:09)
[2019-12-27] MEDS: PANTOPRAZOLE 40 MG TABLET PO SCH ×2 (08:25→20:08)
[2019-12-27] MEDS: MONTELUKAST 10 MG TABLET PO SCH (08:25)
[2019-12-27] MEDS: AMOXICILLIN/CLAV 875 MG TABLET PO SCH ×2 (08:25→20:08)
[2019-12-27] MEDS: ATORVASTATIN 20 MG TABLET PO SCH (08:26)
[2019-12-27] MEDS: CITALOPRAM 20 MG TABLET PO SCH (08:26)
[2019-12-27] MEDS: CALCIUM (CARBONATE) 600 MG TABLET PO SCH ×2 (08:26→20:08)
[2019-12-27] MEDS: METOCLOPRAMIDE 10 MG/10 ML UDCUP PO SCH ×4 (08:26→20:09)
[2019-12-27] MEDS: APIXABAN 5 MG TABLET PO SCH ×2 (08:26→20:08)
[2019-12-27] MEDS ORDERED: SIMETHICONE CHEW 80 MG TABLET PO ONE (18:53)
[2019-12-28 05:43] LABS: Basophils % 0.1 % (0.0-0.8); Eosinophils % 0.3 % (0.00-10.9); Hematocrit 26.2 VOL% (35.7-47.0); Hemoglobin 7.5 GM/DL (12.0-16.0); Immature Granulocytes % 0.6 %; Immature Granulocytes Absolute 0.05 #; Lymphocytes # 1.4 10*3/uL (1.4-4.0); Mean Corpuscular HGB Conc 28.6 GM/DL (32-36); Mean Platelet Volume 9.8 FL (9.6-12.0); Monocytes % 6.9 % (1.7-12.7); Neutrophils % 75.1 % (38.7-73.9); Platelet Count 182 T/CUMM (130-400); Red Blood Count 2.91 MC/CUMM (3.8-5.5); Red Cell Distribution Width 18.4 % (9.3-17.3)
[2019-12-28 06:09] LABS: Calcium 7.8 MG/DL (8.5-10.1)
[2019-12-28] MEDS: PANTOPRAZOLE 40 MG TABLET PO SCH (06:09)
[2019-12-28 06:10] LABS: Anisocytosis 1+; Platelet Estimate Normal
[2019-12-28 06:11] LABS: Poikilocytosis Slight; Polychromasia Slight
[2019-12-28] MEDS: METOCLOPRAMIDE 10 MG/10 ML UDCUP PO SCH ×2 (08:06→12:40)
[2019-12-28] MEDS: ATORVASTATIN 20 MG TABLET PO SCH (08:07)
[2019-12-28] MEDS: MONTELUKAST 10 MG TABLET PO SCH (08:07)
[2019-12-28] MEDS: CITALOPRAM 20 MG TABLET PO SCH (08:07)
[2019-12-28] MEDS: AMOXICILLIN/CLAV 875 MG TABLET PO SCH (08:07)
[2019-12-28] MEDS: CALCIUM (CARBONATE) 600 MG TABLET PO SCH (08:07)
[2019-12-28] MEDS: APIXABAN 5 MG TABLET PO SCH (08:07)
[2019-12-28] MEDS: INSULIN LISPRO 100 UNIT/ML SUBCUT SCH ×2 (08:31→12:40)
[2019-12-28] MEDS ORDERED: SIMETHICONE CHEW 125 MG TABLET PO PRN (08:58)
[2019-12-28] MEDS: POTASSIUM CHLORIDE 20 MEQ TABLET PO PRN ×3 (09:21→13:24)
[2019-12-28] MEDS ORDERED: FUROSEMIDE 40 MG/4 ML VIAL IV ONE (13:59)
[2019-12-28 15:54] VITALS: BP 112/73
== END 2019-12-28 14:53 | disposition swing bed (61) | DRG 391 ==
LOC: EDUNIT# → EDBD → N.ED 16:30 → N.EDINP 18:54 → N.TELES 20:40
PROVIDERS: ADMIT Internal Medicine; ATTEND Internal Medicine

== ENCOUNTER 2020-08-31 13:00 | Observation (INO) ==
[2020-08-31] MEDS ORDERED: SODIUM CHLORIDE 0.9% 1,000 ML IV STA (13:50)
[2020-08-31 14:23] LABS: Basophils # 0.1 10*3/uL (0.0-0.2); Basophils % 0.8 % (0.0-0.8); Eosinophils # 0.2 10*3/uL (0.0-0.87); Eosinophils % 2.8 % (0.00-10.9); Hematocrit 37.6 VOL% (35.7-47.0); Hemoglobin 12.2 GM/DL (12.0-16.0); Immature Granulocytes % 0.2 %; Immature Granulocytes Absolute 0.01 #; Lymphocytes # 2.6 10*3/uL (1.4-4.0); Lymphocytes % 39.8 % (21.3-54.2); Mean Corpuscular HGB Conc 32.4 GM/DL (32-36); Mean Corpuscular Volume 93.1 FL (87-102); Mean Platelet Volume 10.4 FL (9.6-12.0); Monocytes % 8.2 % (1.7-12.7); Neutrophils % 48.2 % (38.7-73.9); Platelet Count 242 T/CUMM (130-400); Red Blood Count 4.04 MC/CUMM (3.8-5.5); White Blood Count 6.5 T/CUMM (4-12)
[2020-08-31 14:39] LABS: INR 1.1; PT Patient Result 11.4 SECS (9.8-11.9); Partial Thromboplastin Time 29.9 SECS (23.9-33.8)
[2020-08-31 14:49] LABS: Alanine Aminotransferase 27 U/L (13-56); Albumin 3.4 G/DL (3.4-5.0); Alkaline Phosphatase 105 U/L (45-117); Aspartate Amino Transferase 25 U/L (0-37); Blood Urea Nitrogen 7 MG/DL (7-18); Calcium 8.7 MG/DL (8.5-10.1); Estimated Glom Filtration Rate 108 ML/MIN; Glucose 101 MG/DL (74-106); Osmolality,Calculated 278.3 MOS/KG (273-304); Total Protein 7.1 G/DL (6.4-8.3)
[2020-08-31 15:04] LABS: Bacteria,Urine Occasional /HPF (Few); Bilirubin,Urine Negative (Negative); Blood, Urine Negative (Negative); Glucose,Urine (UA) Negative (Negative); Ketones,Urine Negative (Negative); Nitrite,Urine Negative (Negative); Protein,Urine Negative; RBC,Urine <1 /HPF (0-4); Squamous Epithelial Cell,Urine Occasional /HPF (0-10); Urine Appearance CLEAR (Clear); Urine Color Straw (Yellow); Urine Specific Gravity 1.004 (1.001-1.035); Urine Urobilinogen < 2.0 EU/DL (0.2-1.0)
[2020-08-31 15:16] LABS: Barbiturates Screen,Urine Negative (Negative); Benzodiazepines Screen,Urine Negative (Negative); Cannabinoid Screen,Urine Negative (Negative); Opiate Screen,Urine Positive (Negative); Phencyclidine Screen,Urine Negative (Negative)
[2020-08-31] MEDS ORDERED: NALOXONE 0.4 MG/ML VIAL IV STA (15:48)
[2020-08-31] MEDS ORDERED: MAGNESIUM SULF RIDER 4 GM in PREMIX 1 EACH IV PRN (17:07)
[2020-08-31] MEDS ORDERED: ONDANSETRON 4 MG/2 ML VIAL IV PRN (17:07)
[2020-08-31] MEDS ORDERED: ALBUTEROL/IPRATROPIUM 3 ML NEB RESP TX PRN (17:07)
[2020-08-31] MEDS ORDERED: GLUCAGON 1 MG VIAL IM PRN (17:07)
[2020-08-31] MEDS ORDERED: ZALEPLON 5 MG CAPSULE PO PRN (17:07)
[2020-08-31] MEDS ORDERED: DEXTROSE 50% 25 GM/50 ML VIAL IV PRN ×2 (17:07)
[2020-08-31] MEDS ORDERED: diphenhydrAMINE CAP 25 MG CAPSULE PO PRN (17:07)
[2020-08-31] MEDS ORDERED: MAGNESIUM SULF RIDER 2 GM in PREMIX 1 EACH IV PRN (17:07)
[2020-08-31] MEDS ORDERED: guaiFENesin/DM ER 600-30 MG TABLET PO PRN (17:07)
[2020-08-31] MEDS ORDERED: ACETAMINOPHEN 325 MG TABLET PO PRN (17:07)
[2020-08-31] MEDS ORDERED: ALBUTEROL 2.5 MG/3 ML NEB RESP TX PRN (17:15)
[2020-08-31] MEDS ORDERED: hydrALAZINE 20 MG/1 ML VIAL IV PRN (17:15)
[2020-08-31] MEDS ORDERED: FUROSEMIDE 80 MG TABLET PO SCH (21:00)
[2020-08-31] MEDS ORDERED: BUDESONIDE/FORMOTEROL 160-4.5 INHALER 6 GM INH PRN (21:00)
[2020-08-31] MEDS ORDERED: cycloSPORINE OPH EMUL 1 VIAL BOTH EYES PRN (21:00)
[2020-08-31] MEDS: ASCORBIC ACID 500 MG TABLET PO SCH (21:45)
[2020-08-31] MEDS: INSULIN REGULAR 100 UNIT/ML SUBCUT SCH (21:46)
[2020-08-31] MEDS: POTASSIUM CHLORIDE 20 MEQ TABLET PO SCH (21:46)
[2020-09-01 05:51] LABS: Basophils # 0.1 10*3/uL (0.0-0.2); Basophils % 0.8 % (0.0-0.8); Eosinophils # 0.1 10*3/uL (0.0-0.87); Eosinophils % 2.1 % (0.00-10.9); Hematocrit 36.1 VOL% (35.7-47.0); Hemoglobin 11.9 GM/DL (12.0-16.0); Immature Granulocytes % 0.3 %; Immature Granulocytes Absolute 0.02 #; Lymphocytes # 2.2 10*3/uL (1.4-4.0); Lymphocytes % 33.5 % (21.3-54.2); Mean Corpuscular Volume 92.8 FL (87-102); Mean Platelet Volume 10.2 FL (9.6-12.0); Monocytes % 10.4 % (1.7-12.7); Neutrophils % 52.9 % (38.7-73.9); Platelet Count 233 T/CUMM (130-400); Red Blood Count 3.89 MC/CUMM (3.8-5.5); White Blood Count 6.6 T/CUMM (4-12)
[2020-09-01 06:30] LABS: Albumin 3.3 G/DL (3.4-5.0); Bilirubin,Total 1.4 MG/DL (0.2-1.0); Calcium 9.2 MG/DL (8.5-10.1); Osmolality,Calculated 280.1 MOS/KG (273-304); Risk Ratio 3.32; Thyroid Stimulating Hormone 1.86 uIU/ml (0.358-3.74); VLDL CHOLESTEROL 16.6 MG/DL
[2020-09-01] MEDS ORDERED: LORazepam 2 MG/1 ML VIAL IV ONE (08:37)
[2020-09-01] MEDS ORDERED: diphenhydrAMINE 50 MG/1 ML VIAL IV ONE (08:38)
[2020-09-01] MEDS: INSULIN REGULAR 100 UNIT/ML SUBCUT SCH ×4 (11:02→21:45)
[2020-09-01] MEDS: FUROSEMIDE 40 MG/4 ML VIAL IV SCH ×2 (11:03→18:50)
[2020-09-01] MEDS: CITALOPRAM 20 MG TABLET PO SCH (11:13)
[2020-09-01] MEDS: PANTOPRAZOLE 40 MG TABLET PO SCH (11:13)
[2020-09-01] MEDS: MONTELUKAST 10 MG TABLET PO SCH (11:13)
[2020-09-01] MEDS: lisinopriL 10 MG TABLET PO SCH (11:14)
[2020-09-01] MEDS: ASCORBIC ACID 500 MG TABLET PO SCH ×2 (11:14→21:46)
[2020-09-01] MEDS: POTASSIUM CHLORIDE 20 MEQ TABLET PO SCH ×2 (11:14→21:48)
[2020-09-01] MEDS: ENOXAPARIN 40 MG/0.4 ML SYRINGE SUBCUT SCH (11:18)
[2020-09-01] MEDS ORDERED: ATORVASTATIN 20 MG TABLET PO SCH (21:00)
[2020-09-02 08:16] VITALS: BP 130/72
[2020-09-02] MEDS: INSULIN REGULAR 100 UNIT/ML SUBCUT SCH (08:57)
[2020-09-02] MEDS: CITALOPRAM 20 MG TABLET PO SCH (08:58)
[2020-09-02] MEDS: PANTOPRAZOLE 40 MG TABLET PO SCH (08:58)
[2020-09-02] MEDS: MONTELUKAST 10 MG TABLET PO SCH (08:58)
[2020-09-02] MEDS: lisinopriL 10 MG TABLET PO SCH (08:59)
[2020-09-02] MEDS: POTASSIUM CHLORIDE 20 MEQ TABLET PO SCH (08:59)
[2020-09-02] MEDS: ENOXAPARIN 40 MG/0.4 ML SYRINGE SUBCUT SCH (08:59)
[2020-09-02] MEDS: ASCORBIC ACID 500 MG TABLET PO SCH (08:59)
== END 2020-09-02 10:45 | disposition home or self-care (01) ==
LOC: N.EDINP 13:00 → N.ED 13:00 → SUATTDRO 17:11 → N.EDINP 20:05 → N.3E 20:31
PROVIDERS: ADMIT Internal Medicine Geriatric Medicine; ATTEND Internal Medicine

== ENCOUNTER 2021-09-28 16:11 | Inpatient (IN) ==
[2021-09-28 16:45] LABS: Basophils % 0.4 % (0.0-0.8); Eosinophils # 0.4 10*3/uL (0.0-0.87); Eosinophils % 4.1 % (0.00-10.9); Hematocrit 23.8 VOL% (35.7-47.0); Hemoglobin 7.1 GM/DL (12.0-16.0); Immature Granulocytes % 0.5 %; Immature Granulocytes Absolute 0.05 #; Lymphocytes # 2.8 10*3/uL (1.4-4.0); Lymphocytes % 28.9 % (21.3-54.2); Mean Corpuscular HGB Conc 29.8 GM/DL (32-36); Mean Corpuscular Volume 85.6 FL (87-102); Mean Platelet Volume 9.4 FL (9.6-12.0); Monocytes % 7.5 % (1.7-12.7); Neutrophils % 58.6 % (38.7-73.9); Platelet Count 467 T/CUMM (130-400); Red Blood Count 2.78 MC/CUMM (3.8-5.5); Red Cell Distribution Width 16.6 % (9.3-17.3); White Blood Count 9.8 T/CUMM (4-12)
[2021-09-28 17:12] LABS: Albumin 3.5 G/DL (3.4-5.0); Bilirubin,Total 0.5 MG/DL (0.20-1.00); Calcium 8.7 MG/DL (8.5-10.1); Osmolality,Calculated 284.3 MOS/KG (273-304); Total Protein 6.6 G/DL (6.4-8.2)
[2021-09-28] MEDS ORDERED: POTASSIUM CHLORIDE 20 MEQ TABLET PO STA (18:44)
[2021-09-28] MEDS ORDERED: SODIUM CHLORIDE 0.9% 500 ML IV STA (18:46)
[2021-09-28] MEDS ORDERED: ONDANSETRON 4 MG/2 ML VIAL IV STA (18:46)
[2021-09-28] MEDS ORDERED: PANTOPRAZOLE 40 MG VIAL IV STA (18:46)
[2021-09-28] MEDS ORDERED: SODIUM CHLORIDE 0.9% 1,000 ML IV PRN (19:31)
[2021-09-28] MEDS ORDERED: hydrALAZINE 20 MG/1 ML VIAL IV PRN (19:35)
[2021-09-28] MEDS ORDERED: NICOTINE 21 MG/24 HR PATCH TRANSDERM PRN (19:35)
[2021-09-28] MEDS ORDERED: ZALEPLON 5 MG CAPSULE PO PRN (19:35)
[2021-09-28] MEDS ORDERED: DOCUSATE SODIUM 100 MG CAPSULE PO PRN (19:35)
[2021-09-28] MEDS ORDERED: ONDANSETRON 4 MG/2 ML VIAL IV PRN (19:35)
[2021-09-28] MEDS ORDERED: GLUCAGON 1 MG VIAL IM PRN (19:35)
[2021-09-28] MEDS ORDERED: diphenhydrAMINE CAP 25 MG CAPSULE PO PRN (19:35)
[2021-09-28] MEDS ORDERED: guaiFENesin/DM ER 600-30 MG TABLET PO PRN (19:35)
[2021-09-28] MEDS ORDERED: DEXTROSE 10% 250 ML BAG IV PRN (19:44)
[2021-09-28] MEDS ORDERED: PANTOPRAZOLE INJ 200 MG in SODIUM CHLORIDE 0.9% 250 ML IV SCH (20:00)
[2021-09-28] MEDS ORDERED: FAMOTIDINE 20 MG/2 ML VIAL IV SCH (20:00)
[2021-09-28 21:44] LABS: Vitamin B12 561 PG/ML (211-911)
[2021-09-29] MEDS: SODIUM CHLOR 0.9% KCL 40 MEQ 40 MEQ/1,000 ML BAG IV SCH (03:07)
[2021-09-29] MEDS: ALBUTEROL/IPRATROPIUM 3 ML NEB RESP TX SCH ×4 (04:47→19:48)
[2021-09-29 05:14] LABS: Basophils # 0.1 10*3/uL (0.0-0.2); Basophils % 0.8 % (0.0-0.8); Eosinophils # 0.4 10*3/uL (0.0-0.87); Eosinophils % 5.1 % (0.00-10.9); Hematocrit 24.6 VOL% (35.7-47.0); Hemoglobin 7.3 GM/DL (12.0-16.0); Immature Granulocytes % 0.5 %; Immature Granulocytes Absolute 0.04 #; Lymphocytes # 2.5 10*3/uL (1.4-4.0); Lymphocytes % 32.5 % (21.3-54.2); Mean Corpuscular HGB Conc 29.7 GM/DL (32-36); Mean Corpuscular Volume 86.3 FL (87-102); Mean Platelet Volume 9.3 FL (9.6-12.0); Monocytes % 9.4 % (1.7-12.7); Neutrophils % 51.7 % (38.7-73.9); Platelet Count 414 T/CUMM (130-400); Red Blood Count 2.85 MC/CUMM (3.8-5.5); Red Cell Distribution Width 16.4 % (9.3-17.3); White Blood Count 7.7 T/CUMM (4-12)
[2021-09-29 05:15] LABS: Basophils % 0.4 % (0.0-0.8); Eosinophils # 0.5 10*3/uL (0.0-0.87); Eosinophils % 5.9 % (0.00-10.9); Hematocrit 24.8 VOL% (35.7-47.0); Hemoglobin 7.4 GM/DL (12.0-16.0); Immature Granulocytes % 0.2 %; Immature Granulocytes Absolute 0.02 #; Lymphocytes # 2.7 10*3/uL (1.4-4.0); Lymphocytes % 33.1 % (21.3-54.2); Mean Corpuscular HGB Conc 29.8 GM/DL (32-36); Mean Corpuscular Volume 86.7 FL (87-102); Mean Platelet Volume 9.2 FL (9.6-12.0); Neutrophils % 50.4 % (38.7-73.9); Platelet Count 399 T/CUMM (130-400); Red Blood Count 2.86 MC/CUMM (3.8-5.5); Red Cell Distribution Width 16.4 % (9.3-17.3)
[2021-09-29 05:43] LABS: Bilirubin,Total 0.6 MG/DL (0.20-1.00); Calcium 8.7 MG/DL (8.5-10.1); Osmolality,Calculated 277.7 MOS/KG (273-304); Potassium 3.2 MMOL/L (3.5-5.1); Total Protein 6.5 G/DL (6.4-8.2)
[2021-09-29] MEDS: INSULIN LISPRO 100 UNIT/ML SUBCUT SCH ×3 (07:29→14:35)
[2021-09-29] MEDS ORDERED: LACTATED RINGERS 1,000 ML IV SCH (07:30)
[2021-09-29 07:52] LABS: Sedimentation Rate-Westergren 37 MM/HR (0-30)
[2021-09-29 07:57] LABS: Eosinophils 7 % (0-10); Hypochromia 1+; Lymphocytes 32 % (20-55); Microcytosis Slight; Platelet Estimate Normal; Segmented Neutrophils 54 % (50-85); Total Cells Counted 100
[2021-09-29] MEDS ORDERED: POTASSIUM CHLORIDE 20 MEQ TABLET PO PRN (08:03)
[2021-09-29] MEDS ORDERED: propofoL 200 MG/20 ML VIAL IV ONE (08:47)
[2021-09-29] MEDS ORDERED: LIDOCAINE 2% 5 ML VIAL ONE (08:47)
[2021-09-29] MEDS ORDERED: IRON SUCROSE 200 MG in SODIUM CHLORIDE 0.9% 100 ML IV SCH (09:00)
[2021-09-29] MEDS: FERRIC GLUCONATE COMPLEX 125 MG in SODIUM CHLORIDE 0.9% 100 ML IV SCH (09:41)
[2021-09-29 12:24] LABS: Hematocrit 28.1 VOL% (35.7-47.0); Hemoglobin 8.5 GM/DL (12.0-16.0)
[2021-09-29] MEDS ORDERED: POTASSIUM CHLORIDE 20 MEQ TABLET PO ONE (15:00)
[2021-09-29 19:51] LABS: Hematocrit 26.9 VOL% (35.7-47.0); Hemoglobin 8.2 GM/DL (12.0-16.0)
[2021-09-30] MEDS: ALBUTEROL/IPRATROPIUM 3 ML NEB RESP TX SCH ×4 (01:10→19:35)
[2021-09-30] MEDS: SODIUM CHLOR 0.9% KCL 40 MEQ 40 MEQ/1,000 ML BAG IV SCH (02:58)
[2021-09-30 05:42] LABS: Basophils # 0.1 10*3/uL (0.0-0.2); Basophils % 0.8 % (0.0-0.8); Eosinophils # 0.4 10*3/uL (0.0-0.87); Eosinophils % 4.4 % (0.00-10.9); Hematocrit 26.8 VOL% (35.7-47.0); Hemoglobin 8.1 GM/DL (12.0-16.0); Immature Granulocytes % 0.5 %; Immature Granulocytes Absolute 0.04 #; Lymphocytes # 2.7 10*3/uL (1.4-4.0); Lymphocytes % 34.7 % (21.3-54.2); Mean Corpuscular HGB Conc 30.2 GM/DL (32-36); Mean Corpuscular Volume 87.9 FL (87-102); Mean Platelet Volume 9.6 FL (9.6-12.0); Monocytes % 10.6 % (1.7-12.7); NRBC # 0.02 10*3/uL; Platelet Count 379 T/CUMM (130-400); Red Blood Count 3.05 MC/CUMM (3.8-5.5); Red Cell Distribution Width 16.6 % (9.3-17.3); White Blood Count 7.9 T/CUMM (4-12)
[2021-09-30 05:55] LABS: Calcium 8.6 MG/DL (8.5-10.1); Osmolality,Calculated 276.5 MOS/KG (273-304); Potassium 3.5 MMOL/L (3.5-5.1)
[2021-09-30 06:11] LABS: Eosinophils 7 % (0-10); Hypochromia Slight; Lymphocytes 31 % (20-55); Microcytosis Slight; Platelet Estimate Normal; Segmented Neutrophils 54 % (50-85); Total Cells Counted 100
[2021-09-30] MEDS: FERRIC GLUCONATE COMPLEX 125 MG in SODIUM CHLORIDE 0.9% 100 ML IV SCH (08:53)
[2021-09-30] MEDS: PANTOPRAZOLE 40 MG VIAL IV SCH ×2 (18:04→22:00)
[2021-10-01] MEDS: ALBUTEROL/IPRATROPIUM 3 ML NEB RESP TX SCH ×5 (01:57→20:43)
[2021-10-01 05:02] LABS: Basophils # 0.1 10*3/uL (0.0-0.2); Basophils % 0.9 % (0.0-0.8); Eosinophils # 0.5 10*3/uL (0.0-0.87); Eosinophils % 5.8 % (0.00-10.9); Hematocrit 25.6 VOL% (35.7-47.0); Hemoglobin 7.5 GM/DL (12.0-16.0); Immature Granulocytes % 0.8 %; Immature Granulocytes Absolute 0.06 #; Lymphocytes # 2.1 10*3/uL (1.4-4.0); Lymphocytes % 27.2 % (21.3-54.2); Mean Corpuscular HGB Conc 29.3 GM/DL (32-36); Mean Corpuscular Volume 88.6 FL (87-102); Mean Platelet Volume 8.9 FL (9.6-12.0); Monocytes % 10.4 % (1.7-12.7); Neutrophils % 54.9 % (38.7-73.9); Platelet Count 348 T/CUMM (130-400); Red Blood Count 2.89 MC/CUMM (3.8-5.5); Red Cell Distribution Width 17.1 % (9.3-17.3); White Blood Count 7.8 T/CUMM (4-12)
[2021-10-01 05:31] LABS: Calcium 8.5 MG/DL (8.5-10.1); Osmolality,Calculated 276.5 MOS/KG (273-304); Potassium 3.8 MMOL/L (3.5-5.1)
[2021-10-01] MEDS: SODIUM CHLOR 0.9% KCL 40 MEQ 40 MEQ/1,000 ML BAG IV SCH ×2 (09:19)
[2021-10-01] MEDS: BISACODYL 5 MG TABLET PO SCH ×3 (09:19→23:28)
[2021-10-01] MEDS: PANTOPRAZOLE 40 MG VIAL IV SCH ×2 (09:19→23:25)
[2021-10-01] MEDS: FERRIC GLUCONATE COMPLEX 125 MG in SODIUM CHLORIDE 0.9% 100 ML IV SCH (09:19)
[2021-10-01 15:08] LABS: Basophils # 0.1 10*3/uL (0.0-0.2); Basophils % 0.8 % (0.0-0.8); Eosinophils # 0.4 10*3/uL (0.0-0.87); Eosinophils % 5.7 % (0.00-10.9); Hematocrit 24.8 VOL% (35.7-47.0); Hemoglobin 7.3 GM/DL (12.0-16.0); Immature Granulocytes % 0.9 %; Immature Granulocytes Absolute 0.07 #; Lymphocytes # 1.9 10*3/uL (1.4-4.0); Lymphocytes % 25.1 % (21.3-54.2); Mean Corpuscular HGB Conc 29.4 GM/DL (32-36); Mean Corpuscular Volume 89.2 FL (87-102); Mean Platelet Volume 9.3 FL (9.6-12.0); Monocytes % 8.1 % (1.7-12.7); Neutrophils % 59.4 % (38.7-73.9); Platelet Count 366 T/CUMM (130-400); Red Blood Count 2.78 MC/CUMM (3.8-5.5); Red Cell Distribution Width 17.2 % (9.3-17.3); White Blood Count 7.6 T/CUMM (4-12)
[2021-10-01 17:51] LABS: Bacteria,Urine Occasional /HPF (Few); Bilirubin,Urine Negative (Negative); Blood, Urine Negative (Negative); Glucose,Urine (UA) Negative (Negative); Ketones,Urine Negative (Negative); Nitrite,Urine Negative (Negative); Protein,Urine Negative; RBC,Urine 1 /HPF (0-4); Squamous Epithelial Cell,Urine Occasional /HPF (0-10); Urine Appearance CLEAR (Clear); Urine Color Straw (Yellow); Urine Specific Gravity 1.005 (1.001-1.035); Urine Urobilinogen < 2.0 EU/DL (<2.0)
[2021-10-01] MEDS ORDERED: POLYETHYLENE GLYCOL POWDER 255 GM BOTTLE PO ONE (18:00)
[2021-10-02] MEDS: ALBUTEROL/IPRATROPIUM 3 ML NEB RESP TX SCH ×4 (01:17→19:15)
[2021-10-02 05:45] LABS: Basophils # 0.1 10*3/uL (0.0-0.2); Basophils % 0.6 % (0.0-0.8); Eosinophils # 0.7 10*3/uL (0.0-0.87); Hematocrit 28.6 VOL% (35.7-47.0); Hemoglobin 8.4 GM/DL (12.0-16.0); Immature Granulocytes % 0.7 %; Immature Granulocytes Absolute 0.07 #; Lymphocytes # 2.3 10*3/uL (1.4-4.0); Lymphocytes % 23.8 % (21.3-54.2); Mean Corpuscular HGB Conc 29.4 GM/DL (32-36); Mean Corpuscular Volume 90.2 FL (87-102); Mean Platelet Volume 9.4 FL (9.6-12.0); Monocytes % 8.2 % (1.7-12.7); Neutrophils % 59.7 % (38.7-73.9); Platelet Count 432 T/CUMM (130-400); Red Blood Count 3.17 MC/CUMM (3.8-5.5); Red Cell Distribution Width 17.4 % (9.3-17.3); White Blood Count 9.6 T/CUMM (4-12)
[2021-10-02 06:03] LABS: Osmolality,Calculated 277.3 MOS/KG (273-304); Potassium 3.9 MMOL/L (3.5-5.1)
[2021-10-02] MEDS ORDERED: LACTATED RINGERS 1,000 ML IV SCH (08:10)
[2021-10-02] MEDS ORDERED: propofoL 200 MG/20 ML VIAL IV ONE (08:38)
[2021-10-02] MEDS ORDERED: LIDOCAINE 2% 5 ML VIAL ONE (08:38)
[2021-10-02] MEDS ORDERED: PANTOPRAZOLE 40 MG VIAL IV SCH (09:00)
[2021-10-02] MEDS ORDERED: fentaNYL 100 MCG/2 ML VIAL ONE (09:03)
[2021-10-02] MEDS ORDERED: BUDESONIDE/FORMOTEROL 160-4.5 INHALER 6 GM INH PRN (09:58)
[2021-10-02] MEDS ORDERED: NITROGLYCERIN SL 0.4 MG TABLET SL PRN (09:58)
[2021-10-02] MEDS: SODIUM CHLOR 0.9% KCL 40 MEQ 40 MEQ/1,000 ML BAG IV SCH (10:11)
[2021-10-02] MEDS: FERRIC GLUCONATE COMPLEX 125 MG in SODIUM CHLORIDE 0.9% 100 ML IV SCH (11:31)
[2021-10-02] MEDS: PANTOPRAZOLE 40 MG VIAL IV SCH ×2 (11:31→20:32)
[2021-10-02] MEDS ORDERED: SIMETHICONE CHEW 125 MG TABLET PO PRN (17:47)
[2021-10-02] MEDS: ACETAMINOPHEN 325 MG TABLET PO PRN (20:32)
[2021-10-03] MEDS: ALBUTEROL/IPRATROPIUM 3 ML NEB RESP TX SCH ×2 (01:58→07:47)
[2021-10-03 06:32] LABS: Basophils # 0.1 10*3/uL (0.0-0.2); Basophils % 1.1 % (0.0-0.8); Eosinophils # 0.4 10*3/uL (0.0-0.87); Hemoglobin 7.5 GM/DL (12.0-16.0); Immature Granulocytes % 0.5 %; Immature Granulocytes Absolute 0.03 #; Lymphocytes % 31.3 % (21.3-54.2); Mean Corpuscular HGB Conc 28.8 GM/DL (32-36); Mean Corpuscular Volume 91.9 FL (87-102); Mean Platelet Volume 9.6 FL (9.6-12.0); Monocytes % 10.4 % (1.7-12.7); Neutrophils % 49.7 % (38.7-73.9); Platelet Count 341 T/CUMM (130-400); Red Blood Count 2.83 MC/CUMM (3.8-5.5); Red Cell Distribution Width 18.2 % (9.3-17.3); White Blood Count 6.3 T/CUMM (4-12)
[2021-10-03 06:48] LABS: Calcium 8.4 MG/DL (8.5-10.1); Potassium 3.7 MMOL/L (3.5-5.1)
[2021-10-03] MEDS ORDERED: SODIUM CHLORIDE 0.9% 1,000 ML IV PRN (08:41)
[2021-10-03] MEDS ORDERED: MORPHINE 2 MG/1 ML SYRINGE IV ONE (10:50)
[2021-10-03] MEDS: CITALOPRAM 40 MG TABLET PO SCH (11:05)
[2021-10-03] MEDS: ATORVASTATIN 20 MG TABLET PO SCH (11:05)
[2021-10-03] MEDS: FOLIC ACID 1 MG TABLET PO SCH (11:05)
[2021-10-03] MEDS: CALCIUM (CARBONATE)/VITAMIN D 600 MG-400 UNIT TABLET PO SCH (11:05)
[2021-10-03] MEDS: MONTELUKAST 10 MG TABLET PO SCH (11:05)
[2021-10-03] MEDS: PANTOPRAZOLE 40 MG VIAL IV SCH ×2 (11:51→21:45)
[2021-10-03 12:08] LABS: Hematocrit 26.3 VOL% (35.7-47.0); Hemoglobin 7.8 GM/DL (12.0-16.0)
[2021-10-03] MEDS ORDERED: propofoL 200 MG/20 ML VIAL IV ONE ×2 (12:16→13:15)
[2021-10-03] MEDS ORDERED: LIDOCAINE 2% 5 ML VIAL ONE (12:16)
[2021-10-03] MEDS ORDERED: fentaNYL 100 MCG/2 ML VIAL ONE (12:17)
[2021-10-03] MEDS ORDERED: MIDAZOLAM 2 MG/2 ML VIAL ONE ×2 (12:17→12:53)
[2021-10-03] MEDS ORDERED: methylPREDNISolone ACETATE 80 MG/1 ML VIAL ONE (12:19)
[2021-10-03] MEDS ORDERED: ROPIVACAINE 0.5% 30 ML VIAL ONE (12:19)
[2021-10-03] MEDS ORDERED: TISSUE ADHESIVE 1 EACH APPLICATOR TOP ONE ×2 (12:19→13:24)
[2021-10-03] MEDS ORDERED: LACTATED RINGERS 1,000 ML IV SCH (12:30)
[2021-10-03] MEDS ORDERED: KETAMINE 500 MG/10 ML VIAL ONE (12:40)
[2021-10-03] MEDS: FERRIC GLUCONATE COMPLEX 125 MG in SODIUM CHLORIDE 0.9% 100 ML IV SCH (13:32)
[2021-10-03] MEDS ORDERED: ONDANSETRON 4 MG/2 ML VIAL IV PRN (13:40)
[2021-10-03] MEDS: HYDROmorphone 2 MG/1 ML VIAL IV PRN ×2 (13:50→16:53)
[2021-10-03] MEDS: ACETAMINOPHEN 325 MG TABLET PO PRN (21:44)
[2021-10-04 05:29] LABS: Basophils % 0.5 % (0.0-0.8); Eosinophils # 0.4 10*3/uL (0.0-0.87); Eosinophils % 5.3 % (0.00-10.9); Hematocrit 27.9 VOL% (35.7-47.0); Hemoglobin 8.2 GM/DL (12.0-16.0); Immature Granulocytes % 0.5 %; Immature Granulocytes Absolute 0.04 #; Lymphocytes # 1.9 10*3/uL (1.4-4.0); Lymphocytes % 24.8 % (21.3-54.2); Mean Corpuscular HGB Conc 29.4 GM/DL (32-36); Mean Corpuscular Volume 92.4 FL (87-102); Mean Platelet Volume 9.7 FL (9.6-12.0); Monocytes % 10.4 % (1.7-12.7); Neutrophils % 58.5 % (38.7-73.9); Platelet Count 303 T/CUMM (130-400); Red Blood Count 3.02 MC/CUMM (3.8-5.5); Red Cell Distribution Width 18.5 % (9.3-17.3); White Blood Count 7.7 T/CUMM (4-12)
[2021-10-04 05:49] LABS: Calcium 8.3 MG/DL (8.5-10.1); Osmolality,Calculated 278.3 MOS/KG (273-304)
[2021-10-04] MEDS: FERRIC GLUCONATE COMPLEX 125 MG in SODIUM CHLORIDE 0.9% 100 ML IV SCH (09:27)
[2021-10-04] MEDS: CALCIUM (CARBONATE)/VITAMIN D 600 MG-400 UNIT TABLET PO SCH (09:29)
[2021-10-04] MEDS: PANTOPRAZOLE 40 MG VIAL IV SCH (09:32)
[2021-10-04] MEDS: CITALOPRAM 40 MG TABLET PO SCH (09:33)
[2021-10-04] MEDS: ATORVASTATIN 20 MG TABLET PO SCH (09:33)
[2021-10-04] MEDS: FOLIC ACID 1 MG TABLET PO SCH (09:33)
[2021-10-04] MEDS: ACETAMINOPHEN 325 MG TABLET PO PRN (09:33)
[2021-10-04] MEDS: MONTELUKAST 10 MG TABLET PO SCH (09:33)
[2021-10-04 12:11] VITALS: BP 120/66
== END 2021-10-04 15:39 | disposition home health service (06) | DRG 982 ==
LOC: N.ED 16:11 → N.EDINP 19:35 → N.5E 09-29 03:30
PROVIDERS: ADMIT Internal Medicine; ATTEND Internal Medicine